=== PATIENT | female | born 1985 | race Caucasian/White ===

== ENCOUNTER 2017-01-30 13:21 | Emergency (ER) | payer OTHER ==
[~2017-01-30] VITALS: Ht 177.8 cm; Wt 124.7 kg
[2017-01-30 13:38] VITALS: BP 135/85
[2017-01-30] MEDS ORDERED: AMOX500C PO (13:52)
[2017-01-30] MEDS ORDERED: HYDR-971 PO (13:52)
--- NOTE | 2017-01-30 13:52 | PHYS DOC ---
Past Medical History Past Medical History: No Pertinent History Past Surgical History: No Surgical History Alcohol Use: Occasionally Drug Use: None Adult General Chief Complaint Chief Complaint: Neck Pain [facility] HPI Patient is a 31 year old female with complaint of atraumatic right jaw pain, ear pain and neck pain is been ongoing for the past 2-3 days. Patient had a Removed off of her first mandibular molar last week for pending dental work. She has not had any actual dental work up until this point. She has not been on any antibiotics within the past 30 days. She denies fevers, chills, myalgias or arthralgias. Review of Systems Review of Systems Constitutional: Denies fever or chills [] Eyes: Denies change in visual acuity, redness, or eye pain [] HENT: Denies nasal congestion or sore throat [] Respiratory: Denies cough or shortness of breath [] Cardiovascular: No additional information not addressed in HPI [] GI: Denies abdominal pain, nausea, vomiting, bloody stools or diarrhea [] : Denies dysuria or hematuria [] Musculoskeletal: Denies back pain or joint pain [] Integument: Denies rash or skin lesions [] Neurologic: Denies headache, focal weakness or sensory changes [] Endocrine: Denies polyuria or polydipsia [] Allergies Allergies Allergies Coded Allergies Type Severity Reaction Last Updated Verified No Known Drug Allergies 01/30/17 No Physical Exam Physical Exam Constitutional: Well developed, well nourished, no acute distress, non-toxic appearance. [] HENT: Normocephalic, atraumatic, bilateral external ears normal, oropharynx moist, no oral exudates, nose normal. There is no obvious swelling to the right side of patient's face. There is tenderness to palpation along the mandibular line without palpable defect, deformity. There is no soft tissue swelling to the parotid gland or palpable stone. First right mandibular molar is decayed into the pulp. There is no active purulent drainage at this time. There is no adjacent gingival abscess. Eyes: PERRLA, EOMI, conjunctiva normal, no discharge. [] Neck: Normal range of motion, no tenderness, supple, no stridor. [] Cardiovascular:Heart rate regular rhythm, no murmur [] Lungs & Thorax: Bilateral breath sounds clear to auscultation [] Abdomen: Bowel sounds normal, soft, no tenderness, no masses, no pulsatile masses. [] Skin: Warm, dry, no erythema, no rash. [] Back: No tenderness, no CVA tenderness. [] Extremities: No tenderness, no cyanosis, no clubbing, ROM intact, no edema. [] Neurologic: Alert and oriented X 3, normal motor function, normal sensory function, no focal deficits noted. [] Psychologic: Affect normal, judgement normal, mood normal. [] Current Patient Data Vital Signs Vital Signs Date Time Temp Pulse Resp B/P Pulse Ox O2 Delivery O2 Flow Rate FiO2 01/30/17 13:38 98.0 65 17 135/85 98 Room Air 98.0 EKG EKG [] Radiology/Procedures Radiology/Procedures [] Course & Med Decision Making Course & Med Decision Making Pertinent Labs and Imaging studies reviewed. (See chart for details) [] Dragon Disclaimer Dragon Disclaimer This electronic medical record was generated, in whole or in part, using a voice recognition dictation system. Departure Departure Impression: Primary Impression: Dental caries Disposition: HOME, SELF-CARE Condition: GOOD Patient Instructions: Dental Caries-Brief Additional Instructions: 1. Take the medication as prescribed. 2. Review the discharge instructions provided for self-care and reasons to return to the emergency department. 3. Contact your dentist today and ensure that you have good dental follow-up. Scripts Hydrocodone/Apap 5-325 ([place] 5-325 Tablet)1 Each Tablet1 Tab PO PRN Q6HRS PRN PAIN #15 TAB Prov:MAGNUS BO 01/30/17 Amoxicillin 500 Mg [id number] Mg PO TID #30 CAP Prov:MAGNUS BO 01/30/17 MAGNUS BO January 30, 2017 13:52
== END 2017-01-30 14:14 | disposition home or self-care (01) ==
LOC: ER 13:21
DX: K02.9 Dental caries, unspecified (principal); H92.01 Otalgia, right ear; M54.2 Cervicalgia
CPT/HCPCS: 99283